=== PATIENT | female | born 1970 | race Caucasian/White ===

== ENCOUNTER 2020-02-25 16:19 | Outpatient (CLI) | payer BC, SELFPAY ==
[2020-02-25 16:30] LABS: Basophils Absolute Auto 0.03 K/mm3 (0.00-0.10); Basophils Percent Auto 0.4 % (0.0-1.0); Eosinophils Absolute Auto 0.08 K/mm3 (0.02-0.50); Eosinophils Percent Auto 1.2 % (1.0-6.0); Hematocrit 37.7 % (35.0-49.0); Hemoglobin 12.6 g/dL (12.0-15.0); Immature Granulocyte Absolute 0.02 K/mm3 (0.00-0.00); Immature Granulocyte Percent A 0.3 % (0.0-0.0); Lymphocytes Absolute Auto 2.14 K/mm3 (1.10-4.50); Lymphocytes Percent Auto 31.3 % (18.0-42.0); Mean Corpuscular HGB Conc 33.4 g/dL (32.0-36.0); Mean Corpuscular Hemoglobin 30.6 pg (27.0-31.0); Mean Corpuscular Volume 91.5 fL (78.0-102.0); Monocytes Absolute Auto 0.58 K/mm3 (0.10-0.90); Monocytes Percent Auto 8.5 % (2.0-11.0); Neutrophils Percent Auto 58.3 % (50.0-70.0); Platelet Count Result 248 K/mm3 (150-420); Red Blood Count 4.12 M/mm3 (4.20-5.40); Red Cell Distribution Width 12.8 % (11.6-14.4); White Blood Count 6.8 K/mm3 (4.8-10.8)
[2020-02-25 17:46] LABS: Alanine Aminotransferase 21 U/L (14-59); Albumin Level 3.8 g/dL (3.4-5.0); Alkaline Phosphatase 77 U/L (46-116); Anion Gap 12.8 mmol/L (7-16); Aspartate Amino Transferase 19 U/L (15-37); Bilirubin,Total 0.3 mg/dL (0.00-1.00); Blood Urea Nitrogen 16 mg/dL (7-18); Calcium 8.6 mg/dL (8.5-10.1); Carbon Dioxide 28 mmol/L (21-32); Chloride 104 mmol/L (98-108); Creatine Kinase 52 U/L (26-192); Estimated Glomerular Filt Rate > 60; Glucose 81 mg/dL (70-99); Osmolality Calculated 292 mOsm/kg (285-295); Potassium 3.8 mmol/L (3.5-5.1); Sodium 141 mmol/L (136-145); Thyroid Stimulating Hormone 6.32 uIU/mL (0.36-3.74)
[2020-02-27 11:12] LABS: Vitamin D 25 Hydroxy 22 ng/mL (30-100)
== END 2020-02-25 16:20 | disposition home or self-care (01) ==
PROVIDERS: PCP Nurse Practitioner Family; Visit Provider Nurse Practitioner Family
DX: E03.9 Hypothyroidism, unspecified (principal); R53.83 Other fatigue; R40.0 Somnolence; M79.10 Myalgia, unspecified site; E55.9 Vitamin D deficiency, unspecified
CPT/HCPCS: 36415; 80053; 82306; 82550; 84443; 85025

== ENCOUNTER 2020-02-26 11:59 | Outpatient (CLI) | payer BC, SELFPAY ==
[2020-02-28 13:11] LABS: TB Skin Test Induration 0 mm (0-10); TB Skin Test Site Left Arm
[2020-02-28 13:12] LABS: TB Skin Test Erythema 0 mm; TB Skin Test Interpretation Negative (Negative)
== END 2020-02-26 12:00 | disposition home or self-care (01) ==
LOC: CHSLAB 12:01
PROVIDERS: PCP Nurse Practitioner Family; Visit Provider Nurse Practitioner Family
DX: Z11.1 Encounter for screening for respiratory tuberculosis (principal)
CPT/HCPCS: 36415; 86580

== ENCOUNTER 2020-03-02 08:28 | Outpatient (CLI) | payer BC, SELFPAY ==
--- NOTE | ~2020-03-02 | US_ITS ---
EXAMINATION:US venous doppler LE BI INDICATION:Lower extremity pain TECHNIQUE: Multiple grayscale, color flow and Doppler images of the lower extremity deep venous syste ms were obtained and reviewed. COMPARISON:No prior studies for comparison. FINDINGS: The common femoral, superficial femoral and popliteal veins demonstrate normal respiratory variation, augmentation and compressibility. Color flow is also seen within the posterior tibial, pe roneal, greater saphenous and profunda veins. IMPRESSION: 1: No lower extremity deep venous thrombosis. Reviewed, dictated and finalized at location A.
== END 2020-03-02 08:29 | disposition home or self-care (01) ==
PROVIDERS: PCP Nurse Practitioner Family; Visit Provider Nurse Practitioner Family
DX: M79.661 Pain in right lower leg (principal); M79.662 Pain in left lower leg
CPT/HCPCS: 93970

== ENCOUNTER 2020-06-02 18:08 | Outpatient (CLI) | payer BC, SELFPAY ==
[2020-06-02 20:28] LABS: Thyroid Stimulating Hormone 0.17 uIU/mL (0.36-3.74)
== END 2020-06-02 18:09 | disposition home or self-care (01) ==
LOC: CHSLAB 18:10
PROVIDERS: PCP Nurse Practitioner Family; Visit Provider Nurse Practitioner Family
DX: E03.9 Hypothyroidism, unspecified (principal)
CPT/HCPCS: 36415; 84443

== ENCOUNTER 2020-10-01 17:19 | Outpatient (CLI) | payer BC, SELFPAY ==
--- NOTE | ~2020-10-01 | XR_ITS ---
EXAMINATION: XR knee LT 3V EXAM DATE: 10/01/2020 17:44 INDICATION: Worsening chronic left knee pain. TECHNIQUE: Left knee lateral, frontal AP, frontal PA tunnel, sunrise projections. There is no prior study for comparison. FINDINGS: No evidence osteochondral defect or joint body in the left knee joint. There is mild to m oderate tricompartmental primary osteoarthritis. No joint effusion. There are no acute fractures or dislocations identified. There is no subcutaneous gas. The soft tissue is unremarkable. There are no radiopaque foreign bodies. IMPRESSION: Mild to moderate left knee osteoarthritis. Reviewed, dictated and finalized at location A. UNITY RELATIONS LIAISON
--- NOTE | ~2020-10-01 | XR_ITS ---
EXAMINATION: XR knee RT 3V EXAM DATE: 10/01/2020 17:44 INDICATION: Worsening chronic right knee pain. TECHNIQUE: Right knee lateral, frontal AP, frontal PA tunnel, sunrise projections. Correlation is mad e to contralateral knee same date. FINDINGS: No evidence osteochondral defect or joint body in the right knee joint. There is mild to moderate tricompartmental primary osteoarthritis. There are no acute fractures or dislocations identi fied. There is no subcutaneous gas. The soft tissue is unremarkable. There are no radiopaque fore ign bodies. IMPRESSION: Mild to moderate right knee osteoarthritis. Reviewed, dictated and finalized at location A. ERTING SUPERVISOR
== END 2020-10-01 17:20 | disposition home or self-care (01) ==
LOC: CHSIMG 17:21
PROVIDERS: PCP Family Medicine; Visit Provider Family Medicine
DX: M25.561 Pain in right knee (principal); M25.562 Pain in left knee
CPT/HCPCS: 73562

== ENCOUNTER 2020-10-17 07:30 | Outpatient (CLI) | payer BC, SELFPAY ==
--- NOTE | ~2020-10-17 | MM_ITS ---
EXAMINATION: MM screening susan BI w carlitos HISTORY: Screening TECHNIQUE: Craniocaudal and mediolateral oblique 3-D tomosynthesis images were obtained and synthetic 2-D images were generated. CAD analysis was submitted and interpreted. COMPARISON: Comparison to multiple prior studies sequentially, with oldest reviewed study dated 11/2011. BREAST PARENCHYMAL COMPOSITION: There are scattered areas of fibroglandular density. FINDINGS: There is no evidence of suspicious mass, calcification, or architectural distortion to sugg est malignancy in either breast. There has been no suspicious interval change. IMPRESSION: 1. No mammographic evidence of malignancy. 2. Recommend routine screening mammography in one year. BI-RADS Category 1: Negative Reviewed, dictated and finalized at location A. GROUND EQUIPMENT ERECTOR
== END 2020-10-17 07:31 | disposition home or self-care (01) ==
LOC: ANHIMG 07:32
PROVIDERS: PCP Family Medicine; Visit Provider Obstetrics & Gynecology
DX: Z12.31 Encounter for screening mammogram for malignant neoplasm of breast (principal)
CPT/HCPCS: 77063; 77067

== ENCOUNTER 2021-02-10 10:25 | Outpatient (CLI) | payer BC, SELFPAY ==
[2021-02-13 08:55] LABS: LH 19.8 mIU/mL (***); Progesterone 0.9 ng/mL (***)
[2021-02-13 15:11] LABS: Testosterone Total 26 ng/dL (2-45)
[2021-02-14 22:26] LABS: Estradiol, Ultrasensitive 219 pg/mL
== END 2021-02-10 10:26 | disposition home or self-care (01) ==
LOC: CHSLAB 10:28
PROVIDERS: PCP Family Medicine; Visit Provider Obstetrics & Gynecology
DX: N95.1 Menopausal and female climacteric states (principal)
CPT/HCPCS: 36415; 82670; 83001; 83002; 84144; 84402; 84403

== ENCOUNTER 2022-01-22 10:30 | Outpatient (CLI) | payer BC, SELFPAY ==
--- NOTE | ~2022-01-22 | MM_ITS ---
EXAMINATION: MM screening susan BI w carlitos HISTORY: Screening mammogram TECHNIQUE: Craniocaudal and mediolateral oblique 3-D tomosynthesis images were obtained and synthetic 2-D images were generated. CAD analysis was submitted and interpreted. COMPARISON: 10/17/2020, 08/17/2019, 03/31/2018 bilateral screening mammogram examinations BREAST PARENCHYMAL COMPOSITION: There are scattered areas of fibroglandular density. FINDINGS: Stable fibroglandular asymmetry. There is no evidence of suspicious mass, calcification, or architectural distortion to suggest malignancy in either breast. There has been no suspicious interv al change. IMPRESSION: 1. No mammographic evidence of malignancy. 2. Recommend routine screening mammography in one year. BI-RADS Category 2: Benign finding(s). Reviewed, dictated and finalized at location A.
== END 2022-01-22 10:31 | disposition home or self-care (01) ==
LOC: ANHIMG 10:32
PROVIDERS: PCP Family Medicine; Visit Provider Obstetrics & Gynecology
DX: Z12.31 Encounter for screening mammogram for malignant neoplasm of breast (principal)
CPT/HCPCS: 77063; 77067

== ENCOUNTER 2022-07-27 09:05 | Outpatient (RCR) | payer BC, SELFPAY ==
--- NOTE | 2022-07-27 13:03 | PTOPEVAL1 ---
Assessment and note entered by Eula Jimenez, PT Evaluation Information Assessment Status Evaluation Diagnosis Bilateral Plantar Fasciitis Onset 07/21/22 Subjective Information Svitlana reports she has been having severe pain in both feet at the heel for a couple months. She went to a stock blender and had injections in both feet. The injections helped pain for a couple weeks but it started creeping back. She notes pain is worse on the left foot now and is starting to go up the back of her leg. She went to the doctor last week again and was given a night splint to wear on her left foot. She notes pain has been worse since she started wearing the splint. She was also given a steroid dose pack and referred to PT. She is noting increased pain with walking and with standing for long periods. 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 She also has a history of bilateral knee OA and had an arthroscopic knee surgery on the right in May. She has been told she will need to have a knee replacement. Reported Pain Level Pain Score 9: Self Report Assessment PT Clinical Summary Svitlana Batuista presents with a diagnosis of bilateral plantar fasciitis. She is having difficulty with standing after prolonged sitting and walking. She demonstrates decreased B gastrocnemius and soleus flexbility, tenderness at the left and right plantar fascia origin, impaired gait, and decreased ankle and foot intrinsic strength. She will benefit from skilled PT to address these limitations. Plan of Care Interventions Hot Pack/Cold Pack,Manual Therapy,Neuro Re- education,Patient/Caregiver Educati,Therapeutic Activities,Therapeutic Exercise,Ultrasound PT Services Indicated Yes Treatment Frequency and 2 times a week for 8 visits Duration These treatments will address the objective and functional deficits as defined above. The patient will be advanced safely and appropriately in order for the patient to progress towards his/her prior level of function. Additional exercises will be introduced and as well as a comprehensive home exercise program upon discharge, if needed, ?to ensure carryover of functional gains achieved in the clinic. This treatment plan has been reviewed and agreement upon by the patient.
--- NOTE | 2022-08-29 10:08 | PTOPEVAL1 ---
Assessment and note entered by Noe Salguero Evaluation Information Assessment Status Evaluation Diagnosis bilateral plantar fasciitis Onset 07/21/22 Subjective Information Pt. reports that the right heel is doing better. She reports little to no pain on the right. She states that the left heel pain has not changed much. She reports that she is standing and moving frequently which leaves her with increased pain. She reports that she has been exercising about 1x /day. She did do needling in the past which she felt brought some relief, but has not attended regularly after that visit. She reports she is pleased with the right foot, but would like to have the left foot pain decreased. Reported Pain Level Pain Score 0,7: Self Report Assessment PT Clinical Summary Pt. demonstrates progress in regards to ROM on right and left as well as pain intensity on the right. She continues to present with pain on the left. Pt. has had recent poor attendance due to scheduling conflict. Expressed the importance of consistent performance of exercise. Dry needling was attempted in past Rx and recommend continued skilled PT with addition of dry needling to continue to reduce pain. Continue to focus on remaining goal with pt. POC. Plan of Care Interventions Manual Therapy,Therapeutic Activities,Therapeutic Exercise Other Interventions Dry Needling PT Services Indicated Yes Treatment Frequency and 1x/week x 3 visits Duration These treatments will address the objective and functional deficits as defined above. The patient will be advanced safely and appropriately in order for the patient to progress towards his/her prior level of function. Additional exercises will be introduced and as well as a comprehensive home exercise program upon discharge, if needed, ?to ensure carryover of functional gains achieved in the clinic. This treatment plan has been reviewed and agreement upon by the patient.
--- NOTE | 2022-11-10 14:51 | PCPTNOTE ---
11/10/22: Refer to last progress note dated 08/29/22 for last subjective and objective measures. Pt did not attend her last visit and will be discharged.
== END 2022-09-22 19:00 | disposition home or self-care (01) ==
LOC: CHSPT 09:05
PROVIDERS: Visit Provider Student in an Organized Health Care Education/Training Program
DX: M72.2 Plantar fascial fibromatosis (principal)
CPT/HCPCS: 97110; 97140; 97161

== ENCOUNTER 2024-11-01 12:42 | Outpatient (CLI) | payer OTHER, SELFPAY ==
--- NOTE | ~2024-11-01 | US_ITS ---
EXAMINATION: US pelvic complete w TV DATE: 11/01/2024 13:11 INDICATION: Pelvic and perineal pain. TECHNIQUE: Multiple transabdominal and transvaginal sonographic images of the pelvis were obtained. COMPARISON: None. FINDINGS: TRANSABDOMINAL ULTRASOUND: The uterus measures 9.2 x 5.2 x 4.3 cm. There is no free fluid in the pelvis. TRANSVAGINAL ULTRASOUND: The endometrial complex measures 5 mm in thickness. There is an intrauterine device in expected posit ion. The right ovary is not visualized. The left ovary measures 2.3 x 2.0 x 2.0 cm. There is normal f low in left ovary. IMPRESSION: 1. Intrauterine device in expected position. 2. Right ovary not visualized. Reviewed, dictated and finalized at location A. PHONER
--- OUTSIDE RECORDS SUMMARY | 2024-11-01 12:49 | XMS_ITS | Clinical Summary ---
Author Organization [facility] Address [facility] [place] [address] Care Team Providers Care Superintendent Quarry Name Role Phone Kelley Banda MD Primary Care Provider [phone]- [phone] Allergies Active Allergy Reactions Criticality Noted Date Comments Penicillins Rash Low 02/01/2021 Medications levothyroxine 150 MCG tablet Take 150 mcg by mouth daily. 12/19/2020 Active vitamin D2, ergocalciferol, 36554 UNITS capsule Take 50,000 Units by mouth every 7 days. Active ibuprofen 200 MG tablet Take 800 mg by mouth every 6 (six) hours as needed for Pain. Active acetaminophen 500 MG tablet Take 1,000 mg by mouth every 6 (six) hours as needed for Pain. Active meloxicam 15 MG tablet Take 1 tablet (15 mg total) by mouth daily. 30 tablet 2 07/28/2021 Active Active Problems Problem Noted Date Diagnosed Date Aftercare following surgery 06/25/2021 Effusion of right knee joint 06/25/2021 Chondromalacia of right knee 03/04/2021 Patellofemoral pain syndrome of left knee 2020 Chondromalacia of left knee 03/04/2021 Osteoarthritis of right patellofemoral joint 06/2021 Bursitis of both hips, unspecified bursa 021 Family History Medical History Relation Comments Hypertension Brother 1 Hypertension Brother 2 Autoimmune Disease Father Cancer Father Heart Disease Father CHF Mother Hypertension Mother Thyroid Disease Mother Thyroid Disease Sister 1 Thyroid Disease Sister 2 Relation Status Comments Brother 1 Alive Brother 2 Alive Father Mother Alive Sister 1 Alive Sister 2 Alive Social History Tobacco Use Types Packs/Day Years Used Date Smoking Tobacco: Former Cigarettes 1 25 0 01/30/1996 - 01/29/2021 Smokeless Tobacco: Never Alcohol Use Standard Drinks/Week Comments Yes 0 (1 standard drink = 0.6 oz pur e alcohol) rarely Comments No Sex and Gender Information Value Date Recorded Sex Assigned at Not on file 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 Gender Identity Not on file Sexual Orientation Not on file Last Filed Vital Signs Vital Sign Reading Time Taken Comments Blood Pressure 130/77 06/16/2021 10:25 AM CDT Pulse 68 06/16/2021 10:25 AM CDT Temperature 36.2 C (97.1 F) 06/16/2021 10:25 AM CDT Respiratory Rate 18 06/16/2021 10:25 AM CDT Oxygen Saturation 100% 06/16/2021 10:25 AM CDT Inhaled Oxygen Concentration - - Weight 95.3 kg (210 lb) 09/23/2021 2:55 PM AIR TRAFFIC CONTROL OPERATOR Height 167.6 cm (5' 6 ) 09/23/2021 2:55 PM AIR TRAFFIC CONTROL OPERATOR Body Mass Index 33.89 09/23/2021 2:55 PM AIR TRAFFIC CONTROL OPERATOR Plan of Treatment Health Maintenance Due Date Last Done Comments Cervical Cancer Screening Pa p Smear (Age 30 to 64) Every 3 Years 1969 Colorectal Cancer Screening Colonoscopy (10 Years) 1969 Annual Physical 1972 Hepatitis C 1987 DTaP, Tdap and Td Vaccines ( 1 - Tdap) 1988 Hepatitis B Vaccines (1 of 3 - 19+ 3-dose series) 1988 Cervical Cancer Screening Pa p with HPV Testing (Age 30 to 64) Every 5 Years 1999 Cervical Cancer Screening [facility] HPV 1999 Mammogram Screening 2009 Zoster Vaccines (1 of 2) 2019 COVID-19 Vaccine (2023-2 5 season) 2024 11/07/2020, 10/10/2020 Influenza Adult (#1) 2024 Meningococcal B Vaccine Aged Out No l onger eligible based on patient's age to complete this topic Meningococcal Vaccine Aged Out No mague jeferson eligible based on patient's age to complete this topic Pneumococcal Vaccine: Pediatrics (0 to 5 Years) and At-Risk Patients (6 to 64 Years) Aged Out No longer eligible b ased on patient's age to complete this topic RSV Immunizations Under 20 Months Aged Out No longer eligible b ased on patient's age to complete this topic Insurance [employer] Care Teams Superintendent Quarry Relationship Specialty Start Date End Date Kelley Banda MD [address] [place] [phone] PCP - General FAMILY PRACTICE 12/19/22
== END 2024-11-01 12:43 | disposition home or self-care (01) ==
LOC: CHSIMG 12:43
PROVIDERS: PCP Family Medicine; Visit Provider Nurse Practitioner Obstetrics & Gynecology
DX: R10.2 Pelvic and perineal pain (principal); Z97.5 Presence of (intrauterine) contraceptive device
CPT/HCPCS: 76830; 76856

== ENCOUNTER 2024-11-13 08:54 | Outpatient (CLI) | payer OTHER, SELFPAY ==
--- NOTE | ~2024-11-13 | MM_ITS ---
EXAMINATION: MM screening susan BI w carlitos HISTORY: Screening TECHNIQUE: Craniocaudal and mediolateral oblique 3-D tomosynthesis images were obtained and synthetic 2-D images were generated. CAD analysis was submitted and interpreted. COMPARISON: Comparison to multiple prior studies sequentially, with oldest reviewed study dated 11/14. BREAST PARENCHYMAL COMPOSITION: Not dense: There are scattered areas of fibroglandular density. FINDINGS: There is no evidence of suspicious mass, calcification, or architectural distortion to sugg est malignancy in either breast. There has been no suspicious interval change. IMPRESSION: 1. No mammographic evidence of malignancy. 2. Recommend routine screening mammography in one year. BI-RADS Category 1: Negative Reviewed, dictated and finalized at location [] RVISOR TOWER
--- OUTSIDE RECORDS SUMMARY | 2024-11-13 09:02 | XMS_ITS | Clinical Summary ---
Author Organization [facility] Address [facility] [place] [address] Care Team Providers Care Fountain Manager Name Role Phone Kelley Banda MD Primary Care Provider +1- [phone] Allergies Active Allergy Reactions Criticality Noted Date Comments Penicillins Rash Low 02/01/2021 Medications levothyroxine 150 MCG tablet Take 150 mcg by mouth daily. 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 Gender Identity Not on file Sexual Orientation [...] 95.3 kg (210 lb) 09/23/2021 2:55 PM INSTRUCTIONAL DESIGN SPECIALIST Height 167.6 cm (5' 6 ) 09/23/2021 2:55 PM INSTRUCTIONAL DESIGN SPECIALIST Body Mass Index 33.89 09/23/2021 2:55 PM INSTRUCTIONAL DESIGN SPECIALIST Plan of Treatment Health Maintenance Due Date [...] Every 5 Years 1999 Cervical Cancer Screening [facility] HPV 1999 Mammogram Screening 2009 [...] patient's age to complete this topic Insurance [employer] Care Teams Fountain Manager Relationship Specialty Start Date End Date Kelley Banda MD [address] [place] [phone] PCP - General FAMILY PRACTICE 12/19/22
== END 2024-11-13 08:55 | disposition home or self-care (01) ==
LOC: CHSIMG 08:56
PROVIDERS: PCP Family Medicine; Visit Provider Nurse Practitioner Obstetrics & Gynecology
DX: Z12.31 Encounter for screening mammogram for malignant neoplasm of breast (principal)
CPT/HCPCS: 77063; 77067

== ENCOUNTER 2025-02-12 12:32 | Outpatient (CLI) | payer OTHER, SELFPAY ==
--- NOTE | 2025-02-12 14:00 | NEURO_ITS ---
Impression: # Complains of intermittent numbness of hands. ? # No Carpal Tunnel Syndrome or ulnar neuropathy. ? # Normal needle/EMG exam. ? # Clinical correlation recommended. Nerve Conduction Studies Anti Sensory Summary Table ?Stim Site NR Peak (ms) P-T Amp (?V) Site1 Site2 Delta-P (ms) Dist (cm) Ulisses (m/s) Left Median Anti Sensory (2-3nd Digit) Wrist ? 2.9 72.2 Wrist 2-3nd Digit 2.9 14.0 48 Wrist ? 2.9 75.6 Wrist 2-3nd Digit 2.9 14.0 48 Right Median Anti Sensory (2-3nd Digit) Wrist ? 3.0 68.3 Wrist 2-3nd Digit 3.0 14.0 47 Wrist ? 3.0 85.8 Wrist 2-3nd Digit 3.0 14.0 47 Left Radial Anti Sensory (Base 1st Digit) Wrist ? 2.0 53.6 Wrist Base 1st Digit 2.0 0.0 Right Radial Anti Sensory (Base 1st Digit) Wrist ? 1.9 23.0 Wrist Base 1st Digit 1.9 0.0 Left Ulnar Anti Sensory (5th Digit) Wrist ? 2.9 53.6 Wrist 5th Digit 2.9 14.0 48 Right Ulnar Anti Sensory (5th Digit) Wrist ? 2.7 71.0 Wrist 5th Digit 2.7 14.0 52 Motor Summary Table ?Stim Site NR Onset (ms) O-P Amp (mV) Site1 Site2 Delta-0 (ms) Dist (cm) Ulisses (m/s) Left Median Motor (Abd Poll Brev) Wrist ? 3.0 6.5 Elbow Wrist 4.2 26.0 62 Elbow ? 7.2 5.8 Right Median Motor (Abd Poll Brev) Wrist ? 3.1 6.8 Elbow Wrist 4.6 29.0 63 Elbow ? 7.7 6.6 Left Ulnar Motor (Abd Dig Minimi) Wrist ? 2.3 6.4 A Elbow Wrist 4.6 29.0 63 A Elbow ? 6.9 5.7 B Elbow Wrist 3.7 22.0 59 B Elbow ? 6.0 3.6 Right Ulnar Motor (Abd Dig Minimi) Wrist ? 2.6 7.0 A Elbow Wrist 4.4 28.0 64 A Elbow ? 7.0 7.0 B Elbow Wrist 3.5 20.0 57 B Elbow ? 6.1 7.1 F Wave Studies ?NR F-Lat (ms) L-R F-Lat (ms) Left Median (Mrkrs) (Abd Poll Brev) ? 26.99 1.82 Right Median (Mrkrs) (Abd Poll Brev) ? 28.81 1.82 Left Ulnar (Mrkrs) (Abd Dig Min) ? 27.27 1.53 Right Ulnar (Mrkrs) (Abd Dig Min) ? 28.79 1.53 EMG ?Side Muscle Nerve Root Ins Act Fibs Amp Dur Recrt Comment Right 1stDorInt Ulnar C8-T1 Nml Nml Nml Nml Nml Right Ext Indicis Radial (Post Int) C7-8 Nml Nml Nml Nml Nml Right Ext Digitorum Radial (Post Int) C7-8 Nml Nml Nml Nml Nml Right BrachioRad Radial C5-6 Nml Nml Nml Nml Nml Right PronatorTeres Median C6-7 Nml Nml Nml Nml Nml Right Abd Poll Brev Median C8-T1 Nml Nml Nml Nml Nml Right ABD Dig Min Ulnar C8-T1 Nml Nml Nml Nml Nml Right FlexPolLong Median (Ant Int) C7-8 Nml Nml Nml Nml Nml Right Abd Poll Long Radial (Post Int) C7-8 Nml Nml Nml Nml Nml Left 1stDorInt Ulnar C8-T1 Nml Nml Nml Nml Nml Left Ext Indicis Radial (Post Int) C7-8 Nml Nml Nml Nml Nml Left Ext Digitorum Radial (Post Int) C7-8 Nml Nml Nml Nml Nml Left BrachioRad Radial C5-6 Nml Nml Nml Nml Nml Left PronatorTeres Median C6-7 Nml Nml Nml Nml Nml Left Abd Poll Brev Median C8-T1 Nml Nml Nml Nml Nml Left ABD Dig Min Ulnar C8-T1 Nml Nml Nml Nml Nml Left FlexPolLong Median (Ant Int) C7-8 Nml Nml Nml Nml Nml Left Abd Poll Long Radial (Post Int) C7-8 Nml Nml Nml Nml Nml MTDD
== END 2025-02-12 12:33 | disposition home or self-care (01) ==
PROVIDERS: PCP Family Medicine; Visit Provider Family Medicine
DX: R20.0 Anesthesia of skin (principal)
CPT/HCPCS: 95886; 95911